=== PATIENT | male | born 2000 | race Caucasian/White ===

== ENCOUNTER → 2021-12-26 | Outpatient (CLI) | payer OTHER | LOC: NUC 12-25 13:39 | PROVIDERS: ATTEND Surgery | DX: R10.11 Right upper quadrant pain (principal) ==

== ENCOUNTER → 2022-01-15 | Day surgery (SDC) | payer OTHER ==
[~2022-01-15] VITALS: Ht 154.9 cm; Wt 90.7 kg
[~2022-01-15] MED LIST: COLACE 100 MG100 MG PO; DICYCLOMINE HCL20 MG PO; DULOXETINE HCL60 MG PO; FLEXERIL PO; HYDROCODON-ACE1 EAC7 PO; IBUPROFEN 200200 M1 PO; LAMOTRIGINE100 M1 PO; MIRALAX17 GM PO; OMEPRAZOLE 20 M20 M1 PO; PHENERGAN 25 MG25 M1 PO; VISTARIL 25 MG25 M1 PO; VITAMIN D31250 MCG PO; ZIPRASIDONE HCL20 M1 PO
[2022-01-15 08:44] VITALS: BP 122/70
[2022-01-15 10:59] VITALS: BP 122/70
--- NOTE | 2022-01-17 17:06 | PATH ---
[facility] [address] [place] [address] PATHOLOGY RPT PROCEDURE Name: AMINA CATALAN Room #: REG [facility] M.R.#: [id number] Admission: 01/15/22 Date of : 89 Discharge: Report #: [id number] Path Case #: [id number] [facility] Accession Number: [id number] . 01 Material submitted: . gallbladder - GALLBLADDER . 01 Clinical history: . LAPAROSCOPIC CHOLECYSTECTOMY W/GRAM HYPERKINETIC GALLBLADDER . 02 Diagnosis: Gallbladder, cholecystectomy: - Mild chronic cholecystitis with cholesterolosis, without cholelithiasis. . (ANK:hermes; 01/17/2022) [facility] 01/17/2022 1026 Local . 02 Electronically signed: . Joslyn Young MD, Pathologist NPI- [id number] . 01 Gross description: . Fixative: Formalin Labeled: Gallbladder Specimen received: Previously disrupted with a 0.4 x 0.3 cm adventitial transmural defect Dimensions: 6.7 x 2.3 x 1.1 cm Lymph node: Not identified Serosa: Blue- green, smooth and dusky Calculi: none within the specimen or specimen container Mucosa: Brown and velvety with abundant chopra stippling Average wall thickness: 0.2 cm Abnormalities: The fundus displays a folded over portion of gallbladder wall (0.8 x 0.4 x 0.4 cm) which is lined on both sides with mucosa. Section reveals alexander unremarkable cut surfaces. A1: Gallbladder, represented to include sections from the fundic folded over wall (PALA; 01/16/2022) DKA/DKA 01/16/2022 1054 Local . 02 Pathologist provided ICD-10: K82.4, K81.1 . 02 CPT . 802726 Specimen Comment: A courtesy copy of this report has been sent to [phone] [id number] [address] PATHOLOGY RPT PROCEDURE Name: AMINA CATALAN Room #: REG [facility].#: [id number] Admission: 01/15/22 Date of : 89 Discharge: Report #: [id number] Path Case #: [id number] Specimen Comment: [id number] Specimen Comment: Report sent to / DR HERNANDEZ Specimen Comment: A duplicate report has been generated due to demographic updates. Performed at: [address], [place], [place] [id number] MD Efrain Downey MD Phone: [phone] Performed at: [address] [id number] MD Joslyn Young MD Phone: [phone]
== END | disposition home or self-care (01) ==
LOC: OR 07:35
PROVIDERS: ATTEND Surgery
DX: K82.9 Disease of gallbladder, unspecified (principal); J45.909 Unspecified asthma, uncomplicated; F41.9 Anxiety disorder, unspecified; F32.9 Major depressive disorder, single episode, unspecified; K21.9 Gastro-esophageal reflux disease without esophagitis; F17.210 Nicotine dependence, cigarettes, uncomplicated; Z79.899 Other long term (current) drug therapy; Z98.890 Other specified postprocedural states; Z20.822 Contact with and (suspected) exposure to COVID-19
CPT/HCPCS: 50010; 50101; 50411; 50555; 51489; 52265; 52266; 53307; 53310; 53312; 54022; 54118; 56462; 56525; 56526; 56530; 58574; 58910; 62110; 62900; 70005